=== PATIENT | male | born 1950 | race Asian ===

== ENCOUNTER → 2017-02-17 | Outpatient (CLI) | payer MEDICARE, BC ==
[~2017-02-17] MED LIST: GADOBUTROL 7.5 MMOL/7.5 ML PFS ONE
== END | disposition home or self-care (01) ==
LOC: CFH 11:33
PROVIDERS: ATTEND Radiology Radiation Oncology
DX: G31.9 Degenerative disease of nervous system, unspecified (principal); I10 Essential (primary) hypertension
CPT/HCPCS: 70553; A9585

== ENCOUNTER → 2017-08-09 | Outpatient (CLI) | payer MEDICARE, BC | END | disposition home or self-care (01) | LOC: ROC 08:31 | PROVIDERS: ATTEND Radiology Radiation Oncology | DX: Z08 Encounter for follow-up examination after completed treatment for malignant neoplasm (principal); G50.0 Trigeminal neuralgia | CPT/HCPCS: 99212; G0463 ==

== ENCOUNTER 2018-06-13 07:23 | Outpatient (CLI) | payer MEDICARE, BC ==
[2018-06-13 08:17] LABS: CREATININE 0.91 mg/dL (0.7-1.3)
[2018-06-13] MEDS ORDERED: GADOBUTROL 7.5 MMOL/7.5 ML PFS ONE (16:38)
== END 2018-06-13 23:59 | disposition home or self-care (01) ==
LOC: RAD 07:23
PROVIDERS: ATTEND Registered Nurse
DX: G31.89 Other specified degenerative diseases of nervous system (principal); G50.0 Trigeminal neuralgia; E23.6 Other disorders of pituitary gland; I77.1 Stricture of artery
CPT/HCPCS: 36415; 70553; 82565; A9585